=== PATIENT | male | born 1945 | race Caucasian/White ===

== ENCOUNTER 2024-01-09 14:34 | Outpatient (RCR) | payer MEDICARE, SELFPAY ==
--- NOTE | 2024-01-02 08:30 | RT.EKG_ITS ---
APPROVED REPORT Exam: Resting ECG Reason for Exam: cardiac rehab intake Patient Location: O HR:58 bpm ECG Measurements Heart Rate 58 AXIS VA 164 P 48 QRSd 89 QRS 17 QT 402 T -34 QTc 395 Conclusion Sinus rhythm...normal P axis, V-rate 50- 99 Abnormal T, consider ischemia, inferior leads...T <-0.20mV, II III aVF
--- NOTE | 2024-01-02 12:27 | NUR.NOTE ---
Nursing Note: Patient presented to [facility] intake visit today. Patient noted to have new T wave inversion to leads II, and AVF compared to post cath with stent placement on 12/26/23. Lead III noted to be inverted on 12/26/23 as well. Patient denied all symptoms. Dr. Woodward viewed EKG changes. Dr. Corbett office notified of EKG changes and EKG from intake sent to their office via fax. Patient left ambulatory in no apparent distress.
== END 2024-01-14 23:59 | disposition home or self-care (01) ==
LOC: CR 14:34
PROVIDERS: Visit Provider Internal Medicine Cardiovascular Disease
DX: I20.0 Unstable angina (principal); Z51.89 Encounter for other specified aftercare
CPT/HCPCS: S9472

== ENCOUNTER 2024-02-13 13:19 | Outpatient (RCR) | payer MEDICARE, SELFPAY | END 2024-02-14 23:59 | disposition home or self-care (01) | LOC: CR 13:19 | PROVIDERS: Visit Provider Internal Medicine Cardiovascular Disease | DX: I20.0 Unstable angina (principal); Z51.89 Encounter for other specified aftercare; Z95.5 Presence of coronary angioplasty implant and graft | CPT/HCPCS: S9472 ==

== ENCOUNTER 2024-03-07 13:33 | Outpatient (RCR) | payer MEDICARE, SELFPAY | END 2024-03-16 23:59 | disposition home or self-care (01) | LOC: CR 13:33 | PROVIDERS: Visit Provider Internal Medicine Cardiovascular Disease | DX: I20.0 Unstable angina (principal); Z51.89 Encounter for other specified aftercare | CPT/HCPCS: S9472 ==